=== PATIENT | male | born 1970 | race Caucasian/White ===

== ENCOUNTER → 2016-11-20 | Outpatient (CLI) | payer OTHER | LOC: CFH 08:29 | PROVIDERS: ATTEND Nurse Practitioner Primary Care | DX: R16.2 Hepatomegaly with splenomegaly, not elsewhere classified (principal); N28.1 Cyst of kidney, acquired; E78.2 Mixed hyperlipidemia; G89.29 Other chronic pain; F51.01 Primary insomnia; J32.0 Chronic maxillary sinusitis; E55.9 Vitamin D deficiency, unspecified; Z79.899 Other long term (current) drug therapy | CPT/HCPCS: 76700 ==